=== PATIENT | female | born 1995 | race Caucasian/White ===

== ENCOUNTER 2019-06-13 14:44 | Emergency (ER) | payer BC, SELFPAY ==
--- NOTE | ~2019-06-13 | US_ITS ---
EXAMINATION: US right upper quadrant DATE: 06/13/2019 15:43 INDICATION: Right upper quadrant pain TECHNIQUE: Multiple grayscale and Doppler ultrasound images of the abdomen were obtained. COMPARISON: 10/28/2018 FINDINGS: The head and and body of the pancreas are normal. The pancreatic tail is obscured by bowel gas. The liver is normal with normal echogenicity and echotexture. No surface nodularity. Normal hepa topetal flow in the main portal vein. The gallbladder is normal with no abnormal wall thickening, per icholecystic fluid or stones. The normal common bile duct measures 4 mm. There was no sonographic Mur phy sign. IMPRESSION: 1. Normal sonographic study of the gallbladder. Reviewed, dictated and finalized at location A. MAN
--- NOTE | ~2019-06-13 | CT_ITS ---
EXAMINATION: CT abdomen pelvis w con DATE: 06/13/2019 17:12 INDICATION: Right-sided abdominal pain, nausea and vomiting TECHNIQUE: Computed tomography (CT) of the abdomen and pelvis was performed with 100 mL Omnipaque-350 intravenous contrast. Automated exposure control and iterative reconstruction technique were employe d. The dose-length product was 885.01 mGy-cm. COMPARISON: Ultrasound dated 06/13/2019 FINDINGS: Lung bases are clear. Heart size is normal. No pericardial or pleural effusion. Small region of focal hepatic steatosis at the ligamentum teres. Gallbladder, spleen, pancreas, bilateral adrenal glands a nd kidneys are normal. Normal appendix. There are few scattered colonic diverticula without adjacent inflammatory change to suggest diverticulitis. No abnormal bowel wall thickening or obstruction. Blad martha, anteverted uterus and bilateral adnexa are normal with a few small follicles at both ovaries. No free intraperitoneal gas or fluid. No pathologically enlarged abdominal or pelvic lymphadenopathy. B ones are unremarkable. IMPRESSION: 1. No acute intra-abdominal/pelvic process. Specifically gallbladder and appendix are normal. Reviewed, dictated and finalized at location A. AGENT IMPRESSION: 1. No acute intra-abdominal/pelvic process. Specifically gallbladder and append ix are normal.
[2019-06-13 14:59] VITALS: BP 128/79; PULSE 72; RESP 20; TEMP 36.3; O2SAT 99
[2019-06-13 15:16] LABS: Basophils Absolute Auto 0.1 K/mm3 (0.0-0.1); Basophils Percent Auto 0.4 % (0.2-1.2); Eosinophils Absolute Auto 0.3 K/mm3 (0-0.3); Eosinophils Percent Auto 1.9 % (0-4.4); Hematocrit 46.4 % (37.0-47.0); Immature Granulocyte Absolute 0.06 K/mm3 (0.00-0.031); Immature Granulocyte Percent A 0.4 % (0-0.5); Lymphocytes Absolute Auto 3.78 K/mm3 (0.9-3.2); Lymphocytes Percent Auto 26.9 % (18.3-44.2); Mean Corpuscular HGB Conc 32.3 g/dl (32-36); Mean Corpuscular Hemoglobin 28.7 pg (26-34); Mean Corpuscular Volume 88.7 fl (80-100); Mean Platelet Volume 11.2 fl (7.4-10.4); Monocytes Absolute Auto 0.9 K/mm3 (0.1-0.6); Monocytes Percent Auto 6.3 % (2.6-8.5); Neutrophils Percent Auto 64.1 % (45.5-73.1); Platelet Count Result 357 k/mm3 (150-375); Red Blood Count 5.23 M/mm3 (4.2-5.4); Red Cell Distribution Width 13.6 % (11.5-14.5)
--- NOTE | 2019-06-13 15:21 | ED.ABDPAIN ---
HPI - Abdominal Pain General Chief Complaint: Abdominal Pain Stated Complaint: N/V ABD PAIN Time Seen by Provider: 06/13/19 14:53 Source: patient Mode of arrival: ambulatory Limitations: no limitations History of Present Illness HPI narrative: This is a 23 year old female that presents to the ER for RUQ pain x 2 weeks. Reports she has been having trouble with nausea and vomiting for the last 4 months. Reports she has been seen by Dr. Nelson and Dr. Dobson for this. Reports she has had an EGD and HIDA scan done. They were told her gallbladder function was lower limits of normal. Were also told she had some reflux and was taking Nexium, that was then switched to Sucralfate. Reports over the last 2 weeks she has started to have pain in the RUQ that is constant. It is worse with eating. Denies fever, or dysuria. Related Data Home Medications Medication Instructions Recorded Confirmed sertraline 50 mg tablet 50 mg PO DAILY 03/19/19 05/28/19 Allergies Allergy/AdvReac Type Severity Reaction Status Date / Time Cephalosporins Allergy Intermediate HIVES Verified 06/13/19 11:57 tetracycline Allergy Mild Hives Verified 06/13/19 11:57 cefuroxime Allergy Unknown Hives Verified 06/13/19 11:57 Review of Systems Review of Systems: Narrative: CONSTITUTIONAL: Denies fever GASTROINTESTINAL: Reports abdominal pain, nausea, vomiting. Denies diarrhea GENITOURINARY: Denies dysuria or hematuria. All systems reviewed & are unremarkable except as noted in HPI and below PMFSH Past Medical History Medical History (Updated 06/13/19 @ 18:26 by Diann Aguayo PA-C) Abnormal finding of blood chemistry, unspecified Anxiety Basal cell carcinoma of skin BMI 33.0-33.9,adult Chronic vomiting Encounter to establish care with new doctor Epigastric abdominal pain Fatty liver Gastrinoma Generalized anxiety disorder GERD without esophagitis Heart murmur History of basal cell cancer 2007 & 2009 History of facial palsy History of lymphadenopathy Nausea and vomiting in adult On intermission coordinator drug therapy RUQ pain Sixth nerve palsy Surgical History Surgical History H/O lymph node biopsy History of tonsillectomy and adenoidectomy Left neck and left groin (2006 & 2010) Social History Social History Smoking status: Never smoker Alcohol intake: current Drinks per week: 1 Substance use: never Exam Narrative: Exam Narrative: GENERAL: Well-appearing, well-nourished, and in no acute distress. HEAD: Normocephalic, atraumatic. EYES: EOMI. CHEST: Clear to auscultation. No respiratory distress. No wheezes rales or rhonchi HEART: Regular rate and rhythm. No murmur heard. Normal peripheral pulses. ABDOMEN: Soft, nondistended, normal active bowel sounds. Tender to palpation of the RUQ, without guarding EXTREMITIES: Normal range of motion. No edema. SKIN: Warm, dry, no rash. NEURO: No focal deficits. Alert and oriented x3. PSYCH: Normal mood and affect Course Consultations Consultation #1: Spoke with Dr. Dobson about patient and workup. She is to call tomorrow for follow up for possible cholecystectomy Date: 06/13/19 Time: 18:22 Vital Signs Vital signs: Vital Signs Temperature 97.4 F L 06/13/19 14:59 Pulse Rate 72 06/13/19 14:59 Respiratory Rate 20 06/13/19 14:59 Blood Pressure 128/79 06/13/19 14:59 Pulse Oximetry 99 06/13/19 14:59 Temperature 97.4 F L 06/13/19 14:59 Pulse Rate 78 06/13/19 18:06 Respiratory Rate 20 06/13/19 18:06 Blood Pressure 124/80 06/13/19 18:06 Pulse Oximetry 98 06/13/19 18:06 MDM - Abdominal Pain MDM Narrative Medical decision making narrative: Patient presents to the ER for RUQ pain x 2 weeks. Reports she has been having trouble with nausea and vomiting for months. She is afebrile and nontoxic appearing. Mild tenderness to palpation of the RUQ, without gua
[2019-06-13 15:27] LABS: Alanine Aminotransferase 26 U/L (4-35); Albumin Level 4.7 g/dL (3.5-5.1); Alkaline Phosphatase 82 U/L (38-126); Aspartate Amino Transferase 30 U/L (14-36); Bilirubin,Total 0.3 mg/dL (0.2-1.3); Blood Urea Nitrogen 16 mg/dL (7-17); Calcium 9.9 mg/dL (8.4-10.2); Carbon Dioxide 24 mmol/L (22-30); Chloride 101 mmol/L (98-107); Estimated CRCL calculation 146 ml/min; Estimated Glomerular Filt Rate > 60; Glucose 101 mg/dL (65-105); Lipase 105 U/L (23-300); Sodium 138 mmol/L (137-145)
[2019-06-13 15:29] LABS: Add Urine Microscopic? NO; Appearance Urine Clear (Clear); Bilirubin Urine Negative (Negative); Blood Urine Negative (Negative); Color Urine Yellow (Yellow); Glucose Urine UA Negative (Negative); Ketones Urine Negative (Negative); Leukocyte Esterase Ur Negative LEU/UL (Negative); Nitrate Urine Negative (Negative); Protein Urine Negative (Negative); Specific Grav Ur 1.025 (1.001-1.035); Urobilinogen Urine Negative mg/dL (<2.0)
[2019-06-13 18:06] VITALS: BP 124/80; PULSE 78; RESP 20; O2SAT 98
== END 2019-06-13 19:04 | disposition home or self-care (01) ==
PROVIDERS: Physician Assistant; Emergency Provider Emergency Medicine; PCP Internal Medicine
DX: R10.11 Right upper quadrant pain (principal); F41.1 Generalized anxiety disorder; K21.9 Gastro-esophageal reflux disease without esophagitis; Z85.828 Personal history of other malignant neoplasm of skin
CPT/HCPCS: 36415; 74177; 76705; 80053; 81003; 81025; 83690; 85025; 99284; Q9967

== ENCOUNTER 2019-06-19 11:18 | Outpatient (CLI) | payer BC, SELFPAY ==
--- NOTE | 2019-06-19 11:22 | ECG_ITS ---
Measurements Intervals [place] Rate: 72 P: 34 MT: 148 QRS: 64 QRSD: 78 T: 56 QT: 382 QTc: 420 Interpretive Statements SINUS RHYTHM BASELINE ARTIFACT- I, III, AVL NORMAL ECG Electronically Signed On 06-19-2019 11:47:47 NURSING PROFESSOR by Jake Woodward D.O.
[2019-06-19 12:19] LABS: Amylase 61 U/L (30-110)
== END 2019-06-19 11:19 | disposition home or self-care (01) ==
PROVIDERS: PCP Internal Medicine; Visit Provider Surgery
DX: Z01.818 Encounter for other preprocedural examination (principal); R10.11 Right upper quadrant pain; E11.9 Type 2 diabetes mellitus without complications
CPT/HCPCS: 36415; 82150; 86850; 86900; 86901; 93005

== ENCOUNTER 2019-06-25 00:22 | Day surgery (SDC) | payer BC, SELFPAY ==
[2019-06-14 15:31] VITALS: BMI 33.3
[2019-06-25] VITALS (8 sets, daily range): BP systolic 115–142; BP diastolic 66–95; PULSE 64–104; RESP 18–20; TEMP 36.3–36.6; O2SAT 98–100
[2019-06-25] MEDS: LACTATED RINGERS 1,000 ML 30 ML IV CONT ×2 (13:30→16:22)
[2019-06-25 13:34] LABS: Glucose Point of Care 70 (65-105)
--- NOTE | 2019-06-25 13:38 | P.PNAN_ITS ---
Anes - Initial Pre Proc Eval Procedure: Operation Date: 06/25/19 15:00 Proposed Procedures p Laparoscopic Cholecystectomy, Possbile Open - Daniel Dobson DO Date/Time: 06/25/19 13:38 Surgeon: Daniel Dobson DO Pre Op Diagnosis: Biliary Dyskinesia Patient Data Age: 23 Gender: F Height: 1.7 m Weight: 98.3 kg Allergies Allergy/AdvReac Type Severity Reaction Status Date / Time Cephalosporins Allergy Intermediate HIVES Verified 06/22/19 08:56 tetracycline Allergy Mild Hives Verified 06/22/19 08:56 cefuroxime Allergy Unknown Hives Verified 06/22/19 08:56 Home Medications Medication Instructions Recorded Confirmed Type sertraline 50 mg tablet 50 mg PO DAILY 03/19/19 06/22/19 History blood-glucose meter #1 each 05/29/19 06/22/19 Rx lancets 33 gauge #100 each 05/29/19 06/22/19 Rx metformin 500 mg tablet,extended 1,000 mg PO DAILY #60 tablet 05/30/19 06/22/19 Rx release 24 hr sucralfate 1 gram tablet 2 gm PO BID #120 tablet 05/30/19 06/22/19 Rx lancets #100 each 06/07/19 06/22/19 Rx hydrocodone-acetaminophen 1 tablet PO Q8H PRN #14 tablet 06/13/19 06/22/19 Rx norethindrone-e.estradiol-iron [Lo 1 tablet PO DAILY 06/14/19 06/22/19 History Loestrin Fe] ondansetron 4 mg disintegrating 4 mg PO Q6H PRN #10 tablet 06/22/19 06/22/19 Rx tablet Laboratory Tests 06/25/19 13:32 POC Capillary Glucose 70 mg/dl mg/dl (65-105) Patient hx anesthesia problems: none Family hx anesthesia problems: none PMFSH Past Medical History Medical History (Updated 06/25/19 @ 07:52 by Rick Mclean DO) Abnormal finding of blood chemistry, unspecified Anxiety Basal cell carcinoma of skin BMI 33.0-33.9,adult Chronic vomiting Diabetes type 2, controlled Encounter to establish care with new doctor Epigastric abdominal pain Fatty liver Gastrinoma Generalized anxiety disorder GERD without esophagitis Heart murmur History of basal cell cancer 2008 & 2008 History of facial palsy History of lymphadenopathy Nausea and vomiting in adult On skilled nursing drug therapy RUQ pain Sixth nerve palsy Surgical History Surgical History H/O lymph node biopsy History of tonsillectomy and adenoidectomy Left neck and left groin (2006 & 2010) Social History Social History Smoking status: Never smoker Alcohol intake: current Drinks per week: 1 Substance use: never Anes - Eval Final PreProcedure Day of Procedure 06/25/19 13:38 Patient weight: obese Heart: regular rate and rhythm Lungs: clear to auscultation and normal air movement Airway: Mallampati scale class 1 Neurological: alert and oriented Last oral intake: >/= 8 hours ASA classification: III Emergent: no Anesthetic plan: proceed Anesthesia type and monitoring: general ETT and standard monitoring Informed Consent: The patient's anesthetic plan and its attendant risks and benefits were discussed with the patient/family/POA. Questions were solicited and answers provided to the satisfaction of the patient/family/POA.
[2019-06-25] MEDS: IBUPROFEN IV 800 MG/200 ML 800 MG/200 ML BAG 400 MG IVPB (13:50)
--- NOTE | 2019-06-25 15:12 | WPDHPUPDATE1 ---
History and Physical Update Update Date/Time: 06/25/19 15:12 History and Physical has been reviewed, including an updated exam of the patient. There are NO changes in the patient's condition. Risks, benefits, and alternatives have been discussed and questions answered. Patient agrees to proceed with procedure.
[2019-06-25] MEDS: ceFAZolin 2 GM/D5W 50 ML 2 GM/50 ML BAG IVPB (15:17)
[2019-06-25] MEDS: BUPIVACAINE/EPINEPHRINE 0.5% 30 ML VIAL INFILTRATE (15:56)
--- NOTE | 2019-06-25 16:21 | PM.PROC ---
Procedure Note - Detailed Date of procedure: 06/25/19 Pre-op diagnosis: Biliary Dyskinesia Post-op diagnosis: same (hemorrhagic cyst) Procedure performed: Laparoscopic Cholecystectomy Description of procedure: Procedure as well as risks, benefits, and alternatives were discussed with patient. Written consent was obtained and placed in chart prior to procedure. The patient was brought back to surgical suite. Patient was placed in supine position on operating table. Time-out was done to confirm patient and procedure. Patient was then intubated by the anesthesia department. Abdomen was prepped and draped in sterile fashion using chlorhexidine prep. 0.5% bupivacaine with epinephrine was infiltrated at each site of incision. A 5 millimeter incision was made near the umbilicus, and a 5 millimeter Optiview trocar was advanced through the abdominal layers under direct visualization. Once inside the abdominal cavity, carbon dioxide was insufflated to create a pneumoperitoneum. The camera was inserted and the abdomen was inspected. No immediate abnormalities were identified. The patient was placed in reverse Trendelenburg position and rotated slightly to the left. An 11 millimeter incision was made in the subxiphoid region, and an 11 millimeter trocar was inserted under direct visualization. Two 5 millimeter incisions were made in the right upper quadrant, and two 5 millimeter trocars were inserted under direct visualization. The gallbladder was identified and grasped at the fundus and retracted superiorly. It was then grasped at the infundibulum retracted laterally. Careful dissection around the neck of the gallbladder was performed using blunt dissection with a [place] grasper and hook electrocautery. The cystic duct was identified, and a window was created behind it. The cystic artery was also identified and a window was created behind it. The critical view of safety was identified, visualizing the cystic duct running directly into the neck of the gallbladder, and the cystic artery running directly into the wall of the gallbladder. A 5 millimeter clip package lift operator was then used to place 2 clips proximally and 1 clip distally on both the cystic duct and cystic artery. They were then both transected using endoscopic scissors. Once safely away from the ekaterina hepatitis, the gallbladder was dissected free from the liver bed using hook electrocautery. Hemostasis was achieved along the way. The gallbladder was removed completely and then removed through the subxiphoid port. The liver bed was then inspected. Hemostasis appeared adequate, and our clips appeared secure. The area was gently irrigated with sterile saline. No other abnormalities were seen. The patient was flattened out in bed, and 1 final inspection was made around the abdominal cavity. The subxiphoid port was removed, and a Reginaldo Bárbara cone was used to approximate the fascia with an 0-Vicryl simple interrupted suture. The remaining ports were then removed under direct visualization, the camera was removed, and the pneumoperitoneum was released. The skin of the incisions was approximated using 4-0 Monocryl subcuticular sutures. Exofin glue was applied on top. The patient was then awakened from anesthesia, extubated, and transferred to recovery. Anesthesia: GETA and local (0.5% bupivicaine with epi) Surgeon: Daniel Dobson DO Estimated blood loss (mL): 5 Drains: No Packing: No Pathology: yes Complications: No immediate complications Condition: stable (Patient tolerated procedure well, and is currently resting comfortably in recovery.) Disposition: same day Findings: This is a 23-year-old woman who presented with nausea and vomiting for the past 6 months. Her nausea seem to be worse 1st thing in the morning, but could not identify a cause. She has had extensive workup, and the only abnormality had been a decreased gallbladder ejection fraction. Since her symptoms were not typical gallbladder
[2019-06-25 16:30] LABS: Glucose Point of Care 108 (65-105)
== END 2019-06-25 18:13 | disposition home or self-care (01) ==
PROVIDERS: PCP Internal Medicine; Visit Provider Surgery
PROC: 0FT44ZZ Resection of Gallbladder, Percutaneous Endoscopic Approach (ICD-10-PCS; CPT 47562; principal; 2019-06-25 15:00)
DX: K81.1 Chronic cholecystitis (principal); K21.9 Gastro-esophageal reflux disease without esophagitis; E11.9 Type 2 diabetes mellitus without complications; K76.0 Fatty (change of) liver, not elsewhere classified; F41.1 Generalized anxiety disorder; G58.8 Other specified mononeuropathies; Z79.84 Long term (current) use of oral hypoglycemic drugs; E66.9 Obesity, unspecified; Z68.33 Body mass index [BMI] 33.0-33.9, adult
CPT/HCPCS: 47562; 88304; A9270; J0330; J0690; J1100; J1741; J2250; J2405; J2704; J2710; J3010; J7030; J7120

== ENCOUNTER 2019-08-06 14:46 | Outpatient (CLI) | payer BC, SELFPAY ==
--- NOTE | ~2019-08-06 | XR_ITS ---
EXAMINATION: XR chest 2V EXAM DATE: 08/06/2019 15:04 INDICATION: Cough, shortness of breath. TECHNIQUE: Frontal and lateral projections of the chest obtained and reviewed. Comparison is made to prior examination from 07/12/2006. FINDINGS: The lungs are clear. There are no pleural effusions. The cardiomediastinal silhouette is within normal limits. There is no pneumothorax suspected. The bones and soft tissues are unremarkab le. There is no significant interval change. IMPRESSION: Unremarkable chest x-ray exam. Reviewed, dictated and finalized at location G.
== END 2019-08-06 14:47 | disposition home or self-care (01) ==
PROVIDERS: PCP Internal Medicine; Visit Provider Internal Medicine
DX: R05 Cough (principal); R06.02 Shortness of breath
CPT/HCPCS: 71046; 87081; 87880

== ENCOUNTER 2019-10-11 14:04 | Outpatient (CLI) | payer BC, SELFPAY ==
--- NOTE | ~2019-10-11 | XR_ITS ---
EXAMINATION: XR knee LT 3V DATE: 10/11/2019 14:36 INDICATION: Left knee pain TECHNIQUE: Three views of the left knee were obtained. COMPARISON: None. FINDINGS: Alignment is normal. No fracture or osteochondral lesion. Joint spaces are normal with no e rosions. No joint effusion/synovitis. Soft tissues are unremarkable. IMPRESSION: 1. No acute osseous abnormality. Reviewed, dictated and finalized at location A.
== END 2019-10-11 14:05 | disposition home or self-care (01) ==
LOC: ANHIMG 14:13
PROVIDERS: PCP Internal Medicine; Visit Provider Internal Medicine
DX: M25.562 Pain in left knee (principal)
CPT/HCPCS: 73562

== ENCOUNTER 2019-10-24 12:44 | Outpatient (CLI) | payer BC, SELFPAY ==
--- NOTE | ~2019-10-24 | US_ITS ---
EXAMINATION: US joint non [employer] LT DATE: 10/24/2019 13:21 INDICATION: Left knee pain at the popliteal fossa TECHNIQUE: Multiple grayscale and Doppler ultrasound images of the popliteal fossa the left knee were obtained. COMPARISON: None FINDINGS: Mild synovitis within an otherwise anechoic 5.4 x 2.8 x 1.2 cm Schmitt's cyst with typical configuratio n at the popliteal fossa. Otherwise unremarkable study. IMPRESSION: 1. 5.4 x 2.8 x 1.2 cm Schmitt's cyst at the left popliteal fossa. Reviewed, dictated and finalized at location A.
== END 2019-10-24 12:45 | disposition home or self-care (01) ==
PROVIDERS: PCP Internal Medicine; Visit Provider Internal Medicine
DX: M71.22 Synovial cyst of popliteal space [Baker], left knee (principal)
CPT/HCPCS: 76882

== ENCOUNTER 2020-08-20 07:21 | Outpatient (CLI) | payer OTHER, SELFPAY ==
--- NOTE | ~2020-08-20 | US_ITS ---
EXAMINATION: US right upper quadrant DATE: 08/20/2020 07:55 INDICATION: Hepatic steatosis TECHNIQUE: Multiple grayscale and Doppler ultrasound images of the abdomen were obtained. COMPARISON: 06/13/2019 FINDINGS: The head and body of the pancreas are normal. The pancreatic tail is obscured by bowel gas. The liver is normal with normal echogenicity and echotexture. No surface nodularity. Normal hepatope florence flow in the main portal vein. There has been interval cholecystectomy. The normal common bile joselyn t measures 5 mm. IMPRESSION: 1. Interval cholecystectomy, otherwise normal examination. Reviewed, dictated and finalized at location A.
== END 2020-08-20 07:22 | disposition home or self-care (01) ==
LOC: ANHIMG 07:21
PROVIDERS: PCP Internal Medicine; Visit Provider Internal Medicine
DX: K76.0 Fatty (change of) liver, not elsewhere classified (principal); Z90.49 Acquired absence of other specified parts of digestive tract
CPT/HCPCS: 76705

== ENCOUNTER 2023-09-19 07:58 | Outpatient (CLI) | payer OTHER, SELFPAY ==
--- NOTE | ~2023-09-19 | US_ITS ---
Limited Abdominal Sonogram: Real-time sonographic imaging of the right upper quadrant was performed. Clinical History: Fatty liver Findings: The liver appears normal with no evidence of mass lesion or bile duct dilatation. Main por florence vein demonstrates normal direction of flow. The gallbladder is absent, compatible prior cholecyst ectomy. The common bile duct measures 5 mm. The visualized pancreas, aorta, and IVC are unremarkable . Impression: Status post cholecystectomy, otherwise unremarkable exam. Reviewed, dictated and finalized at location M. Impression: Status post cholecystectomy, otherwise unremarkable exam.
== END 2023-09-19 07:59 | disposition home or self-care (01) ==
PROVIDERS: PCP Internal Medicine; Visit Provider Internal Medicine
DX: K76.0 Fatty (change of) liver, not elsewhere classified (principal); Z90.49 Acquired absence of other specified parts of digestive tract
CPT/HCPCS: 76705